=== PATIENT | male | born 1990 | race Caucasian/White ===

== ENCOUNTER 2023-12-23 02:33 | Outpatient (CLI) | payer BC, SELFPAY ==
[2023-12-23 08:14] LABS: ALT 25 U/L (16-63); AST 18 U/L (15-37); Albumin 4.3 g/dL (3.4-5.0); Alkaline Phosphatase 69 U/L (46-116); Anion Gap 10.2 mmol/L (3-11); BUN 12 mg/dL (7-18); Bilirubin, Total 0.65 mg/dL (0.2-1.0); CO2 27.8 mmol/L (21.0-32.0); Calcium 9.6 mg/dL (8.5-10.1); Calculated LDL 77 mg/dL (<100); Chloride 104 mmol/L (98-107); Cholesterol 173 mg/dL (<200); Estimated GFR 100.66 (mL/min/1.73m2); Glucose 91 mg/dL (74-106); HDL Cholesterol 90 mg/dL (40-60); Potassium 4.3 mmol/L (3.5-5.1); Sodium 142 mmol/L (136-145); Total Protein 7.4 g/dL (6.4-8.2); Triglyceride 30 mg/dL (<150)
== END 2023-12-23 02:34 | disposition home or self-care (01) ==
LOC: LBO 02:33
PROVIDERS: PCP Student in an Organized Health Care Education/Training Program; Referring Provider Student in an Organized Health Care Education/Training Program; Visit Provider Student in an Organized Health Care Education/Training Program
DX: Z13.220 Encounter for screening for lipoid disorders (principal); I10 Essential (primary) hypertension
CPT/HCPCS: 36415; 80053; 80061

== ENCOUNTER 2024-02-26 00:41 | Outpatient (CLI) | payer BC, SELFPAY ==
--- NOTE | 2024-02-26 15:02 | DI.RAD_ITS ---
Exam(s) XR TOE RT GREAT EXAM: XR TOE RT GREAT CLINICAL HISTORY: ? fx, gout,rt great toe pain, [id number]. TECHNIQUE: 2D digital imaging was performed. COMPARISON: No exams were available for comparison FINDINGS: 3 views There is no evidence of acute fracture or diastasis of the Lisfranc joint. Bone density is normal. There are no osseous lesions nor erosions. With respect of the great toe, there are minimal degenerative changes in the meta tarsal phalangeal j oint. No osseous lesions nor erosions. However, there is subtle soft tissue calcifications evident adjacent to the medial aspect of the head of the great toe metatarsal. The largest of these measures 6 x 3 mm. There is no overlying skin ulcer. No evidence of osteomyelitis. Hallux sesamoid bones s ubjacent to the great toe metatarsal head appear un remarkable. IMPRESSION: Mild degenerative changes in the great toe metatarsophalangeal joint. No erosions. Some soft tissue swelling is noted medial to the great toe metatarsal head with DATA REPOSITORY: RADIATION DOSE DELIVERED:
== END 2024-02-26 01:01 ==
LOC: DI 00:41
PROVIDERS: PCP Student in an Organized Health Care Education/Training Program; Visit Provider Nurse Practitioner Family
DX: M79.674 Pain in right toe(s) (principal)
CPT/HCPCS: 73660

== ENCOUNTER 2024-02-26 01:23 | Outpatient (CLI) | payer BC, SELFPAY ==
[2024-02-26 15:27] LABS: Uric Acid 7.4 mg/dL (3.5-7.2)
== END 2024-02-26 01:24 | disposition home or self-care (01) ==
LOC: LBO 01:23
PROVIDERS: Nurse Practitioner Family; PCP Student in an Organized Health Care Education/Training Program; Referring Provider Student in an Organized Health Care Education/Training Program; Visit Provider Student in an Organized Health Care Education/Training Program
DX: M25.549 Pain in joints of unspecified hand (principal)
CPT/HCPCS: 36415; 84550

== ENCOUNTER 2024-04-21 03:03 | Outpatient (CLI) | payer BC, SELFPAY ==
[2024-04-21 07:18] LABS: HGB 15.5 g/dL (13.5-17.5)
[2024-04-21 07:46] LABS: COMMENT (LAB VIEW ONLY) 126.19 mg/dL; Microalb ug/mg Crea 2.1 ug/mg Cr
[2024-04-21 08:11] LABS: ALT 28 U/L (16-63); AST 22 U/L (15-37); Albumin 4.1 g/dL (3.4-5.0); Alkaline Phosphatase 59 U/L (46-116); Anion Gap 10.8 mmol/L (3-11); BUN 17 mg/dL (7-18); Bilirubin, Total 0.85 mg/dL (0.2-1.0); CO2 27.2 mmol/L (21.0-32.0); CREATININE 0.9 mg/dL (0.70-1.30); Calcium 9.3 mg/dL (8.5-10.1); Calculated LDL 91 mg/dL (<100); Chloride 104 mmol/L (98-107); Cholesterol 195 mg/dL (<200); Estimated GFR 113.51 (mL/min/1.73m2); Glucose 104 mg/dL (74-106); HDL Cholesterol 98 mg/dL (40-60); Potassium 4.4 mmol/L (3.5-5.1); Sodium 142 mmol/L (136-145); Total Protein 7.1 g/dL (6.4-8.2); Triglyceride 34 mg/dL (<150); Vitamin D 25 Total 34.5 ng/mL (30-100)
== END 2024-04-21 03:04 | disposition home or self-care (01) ==
LOC: LBO 03:03
PROVIDERS: PCP Student in an Organized Health Care Education/Training Program; Referring Provider Student in an Organized Health Care Education/Training Program; Visit Provider Student in an Organized Health Care Education/Training Program
DX: Z13.1 Encounter for screening for diabetes mellitus (principal); I10 Essential (primary) hypertension; K90.9 Intestinal malabsorption, unspecified; E79.0 Hyperuricemia without signs of inflammatory arthritis and tophaceous disease; R93.89 Abnormal findings on diagnostic imaging of other specified body structures; Z13.220 Encounter for screening for lipoid disorders
CPT/HCPCS: 36415; 80053; 80061; 82306; 82043; 82570; 85018